=== PATIENT | female | born 1975 | race Caucasian/White ===

== ENCOUNTER 2017-07-20 11:15 | Outpatient (CLI) | payer MEDICAID, OTHER ==
[~2017-07-20] VITALS: Ht 157.5 cm; Wt 86.0 kg
[2017-07-20 11:50] VITALS: BP 99/63; PULSE 84; Ht 157.5 cm; Wt 86.0 kg
--- NOTE | 2017-07-20 13:24 | RADRPT ---
PROCEDURE: OB ultrasound for biophysical profile CLINICAL INDICATION: Gestational diabetes mellitus. TECHNIQUE: Multiple sonographic images of the pelvis were obtained. Transabdominal view of the gr avid uterus are available for review. The images were reviewed on a PACS workstation. COMPARISON: None FINDINGS: breathing movement = 2/2 tone = 2/2 motion = 2/2 Quantitative amniotic fluid volume = 2/2 EMI = 10.0 cm Single live intrauterine with cardiac activity at 137 beats per minute. There is a posterior placenta without previa. IMPRESSION: 1. Single living intrauterine gestation in cephalic position. 2. Biophysical profile = 06/30. 3. EMI = 10.0 cm. RPTAT: [facility] Physician Heraclio Date Time Electronically viewed and signed by Physician Heraclio on 07/20/2017 13:24 /
--- NOTE | 2017-07-20 17:11 | QN ---
Documentation Comment iup 34 weeks gdm vss exam wnl nst reactive a/p iup 34 weeks gdm- nst reactive dc hobbs JACK MOREIRA MD Jul 20, 2017 17:11
== END 2017-07-20 14:40 | disposition home or self-care (01) ==
LOC: OBT 11:15 → L-D 11:15 → OBT 14:40
PROVIDERS: ATTEND Obstetrics & Gynecology
DX: O24.419 Gestational diabetes mellitus in pregnancy, unspecified control (principal); Z3A.34 34 weeks gestation of pregnancy
CPT/HCPCS: 76818; Z7500; G0463

== ENCOUNTER 2017-08-24 07:19 | Inpatient (IN) | END 2017-08-28 16:41 | disposition home or self-care (01) | DRG 775 | DX: O24.429 Gestational diabetes mellitus in childbirth, unspecified control (principal); Z37.0 Single live birth; Z3A.39 39 weeks gestation of pregnancy ==

== ENCOUNTER 2018-02-15 08:46 | Day surgery (SDC) | END 2018-02-15 10:32 | disposition home or self-care (01) ==

== ENCOUNTER 2019-02-21 11:44 | Emergency (ER) | payer OTHER ==
[~2019-02-21] VITALS: Ht 154.9 cm; Wt 76.6 kg
[2019-02-21 11:52] VITALS: BP 123/58; PULSE 82; RESP 18; Ht 154.9 cm; Wt 76.6 kg
[2019-02-21] MEDS ORDERED: ONDA4TAB14 PO (15:44)
[2019-02-21] MEDS ORDERED: IBUP-1542 PO (15:44)
--- NOTE | 2019-02-21 15:56 | ERD ---
ER Documentation Chief Complaint Chief Complaint headache with nausea/dizziness since yesterday HPI 43-year-old female presents for headache, nausea and dizziness times 2 days. She states that she has a pulsatile headache rated 6 out of 10. She states however that the headache currently is improving. She also has a sore throat f or more than a month. She states that she gets nauseous with a headache. Also complains of low energy. Denies fevers or chills. She does have a history of anemia with heavy vaginal bleeding. Has never seen CHILD DAY CARE TEACHER for this issue. ROS All systems reviewed and are negative except as per history of present illness. Medications Home Meds Active Scripts Ondansetron (Ondansetron Odt) 4 Mg Tab.rapdis, 4 MG PO Q6H PRN for NAUSEA AND/OR VOMITING, #15 TAB Prov:EDWARD LAGUNAS DO 02/21/19 Ibuprofen* (Motrin*) 600 Mg Tab, 600 MG PO Q6H PRN for PAIN, #30 TAB Prov:EDWARD LAGUNAS DO 02/21/19 Allergies Allergies: Coded Allergies: caffeine (Verified Allergy, Unknown, 02/15/18) N/V PMhx/Soc History of Surgery: No Anesthesia Reaction: No Hx Neurological Disorder: No Hx Respiratory Disorders: No Hx Cardiac Disorders: No Hx Psychiatric Problems: No Hx Miscellaneous Medical Probl: No Hx Alcohol Use: No Hx Substance Use: No Hx Tobacco Use: No Physical Exam Vitals Vital Signs Date Temp Pulse Resp B/P (MAP) Pulse Ox O2 O2 Flow FiO2 Time Delivery Rate 02/21/19 98.1 82 18 123/58 98 11:52 (79) Physical Exam Const: No acute distress Head: Atraumatic, no temporal area tenderness to palpation Eyes: Normal Conjunctiva, pupils equal, round, reactive to light bilaterally ENT: Normal External Ears, bilateral tympanic membrane intact without erythema or bulging noted, Nose and Mouth examination normal. No tonsillar swelling or exudate noted Neck: Full range of motion. No meningismus, no bruits noted Resp: Clear to auscultation bilaterally Cardio: Regular rate and rhythm, no murmurs, bilateral radial and dorsalis pedis pulses intact Skin: No petechiae or rashes Ext: No cyanosis, or edema, 5 out of 5 muscular bilateral upper and lower extremities Neur: Awake and alert, bilateral upper and lower extremity sensation intact Psych: Normal Mood and Affect Result Diagram: 02/21/19 1249 02/21/19 1249 Results 24 hrs Laboratory Tests Test 02/21/19 12:49 02/21/19 12:50 02/21/19 13:12 White Blood Count 7.7 10^3/ul Red Blood Count 4.71 10^6/ul Hemoglobin 12.5 g/dl Hematocrit 39.2 % Mean Corpuscular Volume 83.2 fl Mean Corpuscular Hemoglobin 26.5 pg Mean Corpuscular 31.9 g/dl Hemoglobin Concent Red Cell Distribution Width 13.2 % Platelet Count 279 10^3/UL Mean Platelet Volume 11.2 fl Immature Granulocytes % 0.500 % Neutrophils % 81.6 % Lymphocytes % 12.5 % Monocytes % 4.1 % Eosinophils % 0.9 % Basophils % 0.4 % Nucleated Red Blood Cells % 0.0 /100WBC Immature Granulocytes # 0.040 10^3/ul Neutrophils # 6.3 10^3/ul Lymphocytes # 1.0 10^3/ul Monocytes # 0.3 10^3/ul Eosinophils # 0.1 10^3/ul Basophils # 0.0 10^3/ul Nucleated Red Blood Cells # 0.0 10^3/ul Sodium Level 140 mmol/L Potassium Level 4.5 mmol/L Chloride Level 104 mmol/L Carbon Dioxide Level 26 mmol/L Anion Gap 10 Blood Urea Nitrogen 13 mg/dl Creatinine 0.46 mg/dl Est Glomerular Filtrat > 60 mL/min Rate mL/min Glucose Level 105 mg/dl Calcium Level 9.2 mg/dl Total Bilirubin 0.4 mg/dl Direct Bilirubin 0.00 mg/dl Indirect Bilirubin 0.4 mg/dl Aspartate Amino Transf (AST/SGOT) 18 IU/L Alanine 11 IU/L Aminotransferase (ALT/SGPT) Alkaline Phosphatase 47 IU/L Total Protein 8.2 g/dl Albumin 4.4 g/dl Globulin 3.80 g/dl Albumin/Globulin Ratio 1.15 Urine Color YELLOW Urine Clarity SLIGHTLY CLOUDY Urine pH 5.0 Urine Specific [place] 1.027 Urine Ketones NEGATIVE mg/dL Urine Nitrite NEGATIVE mg/dL Urine Bilirubin NEGATIVE mg/dL Urine Urobilinogen NEGATIVE mg/dL Urine Leukocyte Esterase NEGATIVE Suzi/ul Urine Microscopic RBC 0 /HPF Urine Microscopic WBC 1 /HPF Urine Squamous Epithelial Cells MODERATE /HPF Urine Bacteria FEW /HPF Urine Mucus FEW /HPF Urine Hemoglobin NEGATIVE mg/dL Urine Glucose NEGATIVE mg/dL Urine Total Protein NEGATIVE mg/dl POC Beta HCG, Qualitative NEGATIVE Procedures/MDM Medical Decision Making: Differential diagnosis includes but not limited to primary headache, subarachnoid hemorrhage, meningitis, temporal arteritis, glaucoma, hypertension, cerebral ischemia, carotid or vertebral arterial dissection, brain tumor. Patient appeared well on physical examination, nontoxic appearing. No history of fever. There is low suspicion for meningitis. Given no temporal area tenderness to palpation, low suspicion for temporal arteritis. Patient has no vision changes and pupils are reactive bilaterally, low suspicion for glaucoma. There is also no focal neurologic deficits to suggest a brain tumor. Patient has normal sensation and muscle strength, low suspicion for cerebral ischemia. Given headache is similar to prior headaches, patient possibly has a primary headache. CBC: no e/o of systemic infection or severe anemia CMP: no e/o severe acidosis, alkalosis, renal failure, diabetic ketoacidosis, liver disease Urine: no e/o acute infection or hematuria Pelvic ultrasound unremarkable, there is no mass or free fluid. There is no anemia noted. However patient is advised to follow with [facility] CARE TE[facility]ER given donald-vaginal bleeding history. Patient given prescription for supportive medication(s). Patient advised to follow up with PCP in 1-2 days. Patient advised to return to ED for new or worsening symptoms. Patient stable on discharge from the ED. Disclaimer: Inadvertent spelling and grammatical errors are likely due to EHR/dictation software use and do not reflect on the overall quality of patient care. Also, please note that the electronic time recorded on this note does not necessarily reflect the actual time of the patient encounter. Departure Diagnosis: Primary Impression: Headache Headache type: unspecified Headache chronicity pattern: unspecified pattern Intractability: not intractable Qualified Codes: R51 - Headache Additional Impression: Nausea Condition: Fair Patient Instructions: Self-Care for Headaches, Nausea Referrals: COMM[facility]ITY CLIN[facility] YOU HAVE RECEIVED A MEDICAL SCREENING EXAM AND THE RESULTS INDICATE THAT YOU DO NOT HAVE A CONDITION THAT REQUIRES URGENT TREATMENT IN THE EMERGENCY DEPARTMENT. FURTHER EVALUATION AND TREATMENT OF YOUR CONDITION CAN WAIT UNTIL YOU ARE SEEN IN YOUR DOCTORS OFFICE WITHIN THE NEXT 1-2 DAYS. IT IS YOUR RESPONSIBILITY TO MAKE AN APPOINTMENT FOR FOLOW-UP CARE. IF YOU HAVE A PRIMARY DOCTOR --you should call your primary doctor and schedule an appointment IF YOU DO NOT HAVE A PRIMARY DOCTOR YOU CAN CALL OUR PHYSICIAN REFERRAL HOTLINE AT IF YOU CAN NOT AFFORD TO SEE A PHYSICIAN YOU CAN CHOSE FROM THE FOLLOWING [facility] CL[facility] [address] [facility] [address] [facility] [address] [facility] [address] [facility] [address] [facility] [facility]. [address] Additional Instructions: Call your primary care doctor TOMORROW for an appointment during the next 1-2 days.See the doctor sooner or return here if your condition worsens before your appointment time. Llame al doctor MAANA y eva zach THADDEUS PARA DENTRO DE 1-2 PEÑA.Dgale a la secretaria que nosotros le instruimos hacer esta thaddeus.Avise o llame si arias condicin se empeora antes de la thaddeus. Regresa aqui si peor o no mejor. EDWARD LAGUNAS DO Feb 21, 2019 15:56
== END 2019-02-21 15:40 | disposition home or self-care (01) ==
LOC: FTE 11:44
DX: R51 Headache (principal); R11.0 Nausea
CPT/HCPCS: 76856; 80053; 81001; 81025; 85025; Z7502; 81003

== ENCOUNTER 2019-05-09 10:16 | Day surgery (SDC) | payer OTHER ==
[2019-05-06 17:30] VITALS: BMI 31.8
[2019-05-09] VITALS (16 sets, daily range): BP systolic 106–139; BP diastolic 60–80; PULSE 62–82; RESP 14–17; Ht 154.9 cm; Wt 77.6 kg
[~2019-05-09] VITALS: Ht 154.9 cm; Wt 77.6 kg
--- NOTE | 2019-05-09 08:53 | PREOPHP ---
DATE OF ADMISSION: 05/09/2019 HISTORY OF PRESENT ILLNESS: Ms. Samira Bullock is a 44-year-old 6, para 4, desires permanen t surgical sterilization. PAST MEDICAL HISTORY: None. MEDICATIONS: None. PAST SURGICAL HISTORY: None. OBSTETRIC HISTORY: x4 vaginal deliveries, x2 missed AB. Last vaginal delivery was in 08/2017. GYNECOLOGIC HISTORY: 14, regular, 3 to 6 days. Denies any sexually transmitted infections. Sexuall y active with 1 partner. SOCIAL HISTORY: Denies any smoking, drugs or alcohol. FAMILY HISTORY: None. REVIEW OF SYSTEMS: All within normal except history of present illness. PHYSICAL EXAMINATION: HEENT: Within normal. LUNGS: CTA bilateral. CARDIOVASCULAR: S1, S2, regular rhythm. ABDOMEN: Soft, nontender, negative distention. EXTREMITIES: Negative edema. Gravid. VAGINAL: Normal external genitalia. Cervix negative CMT, negative lesions. Negative mass, nontender bilateral. Fundus within normal limits. ASSESSMENT: Multiparity, desires permanent surgical sterilization. PLAN: Consent for laparoscopic bilateral tubal sterilization. Risks, benefits and alternatives expl ained. All questions were answered. Dictated By: EDWARD CHAVEZ/KALIA Conf#: [id number] DID#: [id number]
[~2019-05-09 10:16] MED LIST: IBUP-1542 PO; ONDA4TAB14 PO
--- NOTE | 2019-05-09 13:51 | PREAC ---
Date/Time of Note Date/Time of Note DATE: 05/09/19 TIME: 13:51 Anesthesia Eval and Record Evaluation Time Pre-Procedure Interview DATE: 05/09/19 TIME: 13:51 Age 44 Sex female NPO: 8 hrs Preoperative diagnosis Voluntary sterilization Planned procedure Laparoscopic tubal ligation Past Medical History Past Medical History: Includes GI: Obesity Surgery & Anesthesia Issues No known issue Meds Anticoagulation: No Beta Lisette within 24 hr: No Reason Beta Lisette not given: Pt. not on B-Lisette Discontinued Scripts Ondansetron (Ondansetron Odt) 4 Mg Tab.rapdis, 4 MG PO Q6H PRN for NAUSEA AND/OR VOMITING, #15 TAB Prov:EDWARD LAGUNAS DO 02/21/19 Ibuprofen* (Motrin*) 600 Mg Tab, 600 MG PO Q6H PRN for PAIN, #30 TAB Prov:EDWARD LAGUNAS 02/21/19 Meds reviewed: Yes Allergies Coded Allergies: caffeine (Verified Allergy, Unknown, 05/09/19) N/V Allergies Reviewed: Yes Labs/Studies Labs Reviewed: Reviewed by anesthesiologist Result Diagram: 05/09/19 1143 Laboratory Tests 05/09/19 11:43 Blood Bank Test 05/09/19 11:43 Antibody Screen NEGATIVE Blood Type A POSITIVE test: Negative Pre-procedure Exam Last vitals Vital Signs Date Temp Pulse Resp B/P (MAP) Pulse Ox O2 O2 Flow FiO2 Time Delivery Rate 05/09/19 98.7 82 16 121/75 99 12:06 (90) Airway: Adequate mouth opening Mallampati: Mallampati II Teeth: Normal Lung: Normal Heart: Normal ASA Physical Status ASA physical status: 2 Emergency: None Planned Anesthetic General/MAC: ETT Planned Pain Management Parenteral pain med Pre-operative Attestations Prior to commencing anesthesia and surgery, the patient was re-evaluated, there was verification of: *The patient's identity *The results of appropriate recent lab work and preoperative vital signs *The above evaluation not changing prior to induction *Anesthetic plan, risk benefits, alternative and complications discussed with patient/family; questions answered; patient/family understands, accepts and wishes to proceed. BARBARA CUBA MD May 09, 2019 13:51
[2019-05-09] MEDS ORDERED: GLYCOPYRROLATE 0.4 MG INJ ONE ×2 (13:57→14:27)
[2019-05-09] MEDS ORDERED: PROPOFOL 20 ML ONE (13:57)
[2019-05-09] MEDS ORDERED: NEOSTIGMINE 3 MG/3 ML SYRINGE ONE ×2 (13:57→14:27)
[2019-05-09] MEDS ORDERED: ROCURONIUM 50 MG INJ ONE (13:57)
[2019-05-09] MEDS ORDERED: SUCCINYLCHOLINE CHLORIDE 100 MG/5 ML SYG IV ONE (13:57)
[2019-05-09] MEDS ORDERED: LIDOCAINE 2% (SDV) 5 ML INJ ONE (13:57)
[2019-05-09] MEDS ORDERED: MEPERIDINE 100 MG INJ ONE (13:58)
[2019-05-09] MEDS ORDERED: CEFAZOLIN 1 GM INJ ONE (13:59)
[2019-05-09] MEDS ORDERED: METOCLOPRAMIDE 10 MG INJ ONE (14:18)
[2019-05-09] MEDS ORDERED: ONDANSETRON 4 MG INJ ONE (14:18)
--- NOTE | 2019-05-09 14:55 | OPPN ---
Date/Time of Note Date/Time of Note DATE: 05/09/19 TIME: 14:53 Operative Report Planned Procedure Procedure date May 09, 2019 Procedure(s) laparoscopic bilateral tubal fulguration Performed by see signature line Job Service Consultant: EDWARD YOUSIF MD 2nd Job Service Consultant none Pre-procedure diagnosis Multiparity, desires permanent surgical sterilization. [id number] Anesthesia Type: Ixaqw1h general Post-Procedure Post-procedure diagnosis same Findings normal uterus tubes and ovaries Estimated Blood Loss: minimal Specimen(s) none Grafts/Implant(s) none Complication(s) none EDWARD YOUSIF MD May 09, 2019 14:55
--- NOTE | 2019-05-09 15:17 | PD.PPDC ---
CATERER'S AIDE Discharge Instruction Condition Otoct6Ie Patient Condition: Wzlad4r Good Diet Srfay3Yk Diet: Fembm9o Resume Regular Diet Activity/Restrictions Bnnvj4Ln Activity: Hgaxq9i Normal Activity May Shower Ewwig4Wn Restrictions: Cdlla6x No Exercising No Lifting No Driving No Sexual Activity Nothing in the Vagina No Sleepy Eye No Tampons, douche Follow-up Follow-up with Physician: 2, Week/Weeks Return to clinic for Avupr2Ip MULTIPLE W[employer]ER Instructions: Dbbsj3j Fever greater than 101 Chills Worsening abdominal pain Excessive Vaginal Bleeding More than 2 pads per hour Unable to tolerate diet Asnsu6Fj OB Instructions: Suptn4p Breast Tenderness Depression Blurried Vision Headache Rmrox8Bo Surgical Instructions: Zvzfq6e Incisional Drainage Incisional Redness EDWARD YOUSIF MD May 09, 2019 15:17
--- NOTE | 2019-05-09 15:19 | PAC ---
Date/Time of Note Date/Time of Note DATE: 05/09/19 TIME: 15:19 Post-Anesthesia Notes Post-Anesthesia Note Last documented vital signs Vital Signs Date Temp Pulse Resp B/P (MAP) Pulse Ox O2 O2 Flow FiO2 Time Delivery Rate 05/09/19 66 15 121/74 100 Mask 6.0 15:15 (90) 05/09/19 98.2 15:01 Activity: WNL Respiratory function: WNL Cardiovascular function: WNL Mental status: Baseline Pain reasonably controlled: Yes Hydration appropriate: Yes Nausea/Vomiting absent: Yes Comments BT: 98.3 BARBARA CBUA MD May 09, 2019 15:19
[2019-05-09] MEDS ORDERED: FENTAnyl 50 MCG/ML VIAL IV PRN ×3 (15:30)
[2019-05-09] MEDS ORDERED: MIDAZOLAM 1 MG/ML 2 ML INJ IV PRN (15:30)
[2019-05-09] MEDS ORDERED: hydrALAzine 20 MG INJ IV PRN (15:30)
[2019-05-09] MEDS ORDERED: HYDROmorphONE 1 MG/5 ML IV SYRINGE IV PRN ×3 (15:30)
[2019-05-09] MEDS ORDERED: METOCLOPRAMIDE 10 MG INJ IV PRN (15:30)
[2019-05-09] MEDS ORDERED: OXYCODONE/ACETAMINOPHEN (5/325) TAB PO PRN ×2 (15:30)
[2019-05-09] MEDS ORDERED: LABETALOL HCL 20MG INJ IV PRN (15:30)
[2019-05-09] MEDS ORDERED: DIPHENHYDRAMINE 50 MG INJ IV PRN (15:30)
[2019-05-09] MEDS ORDERED: EPHEDrine 25 MG/5 ML SYG IV PRN (15:30)
[2019-05-09] MEDS ORDERED: MEPERIDINE 25 MG INJ IV PRN (15:30)
[2019-05-09] MEDS ORDERED: ONDANSETRON 4 MG INJ IV PRN (15:30)
--- NOTE | 2019-05-11 17:17 | OPR ---
DATE OF OPERATION: 05/09/2019 PRIMARY DIAGNOSES: Multiparity, desires permanent surgical sterilization. POSTOPERATIVE DIAGNOSES: Multiparity, desires permanent surgical sterilization. PROCEDURE: Laparoscopic bilateral tubal fulguration. SURGEON: Mike Woods MD ENGINEERING INSTRUCTOR: None. ANESTHESIA: General. COMPLICATIONS: None. ESTIMATED BLOOD LOSS: Minimal. FINDINGS: Normal uterus, tubes, and ovaries. DESCRIPTION OF PROCEDURE: After explaining the risks, benefits, and alternatives, the patient had co nsent signed in chart. The patient was taken to the operating room where general anesthesia was obta ined without difficulty. The patient was then examined under anesthesia and found to have a small an teverted uterus with normal adnexa. She was then placed in dorsal lithotomy position and prepared an d draped in a sterile fashion. A heavy weighted speculum was then placed in the patient's vagina and the anterior lip of the cervix was grasped with a single tooth tenaculum. A HUMI uterine manipulato r was then advanced into the uterus to provide means to manipulate the uterus. The speculum was then removed from the vagina. Attention was then turned to the patient's abdomen where a 5 mm skin incis ion was made in the umbilical fold. The Veress needle was carefully introduced into the peritoneal c avity at 45-degree angle while tenting the abdominal wall. Intraperitoneal placement was confirmed b y use of water-filled syringe and drop in intraabdominal pressure with insufflation of CO2 gas. The trocar and sleeve were then advanced without difficulty into the abdomen where intra-abdominal placem ent was confirmed by laparoscope. Pneumoperitoneum was obtained with 4 L of CO2 gas, and a 5 mm troc ar and sleeve were then advanced under direct visualization of the bladder where intra-abdominal plac ement was confirmed by laparoscope. A second skin incision was made 2 cm above the symphysis pubis i n the midline. The second trocar and sleeve were then advanced under direct visualization. A survey of the patient's pelvis and abdomen revealed normal. At this point, the right fallopian tube was fu lgurated at multiple areas of the ampullary and isthmus area. Good blanching was observed. Similarl y, the left fallopian tube was fulgurated. Good hemostasis was noted. The instruments were then rem juancho from the patient's abdomen, and the incision was repaired with 3-0 Vicryl. The needle was then removed from the patient's vagina with no bleeding noted from the cervix. The patient tolerated proc edure well. Sponge, lap, needle counts were correct. The patient was taken to recovery room in stab le condition. Dictated By: MIKE CHAVEZ/KALIA Conf#: [id number] DID#: [id number]
== END 2019-05-09 18:25 | disposition home or self-care (01) ==
LOC: SDS 10:16
PROVIDERS: ATTEND Obstetrics & Gynecology
DX: Z30.2 Encounter for sterilization (principal)
CPT/HCPCS: 58670; 84702; 85025; 86850; 86900; 86901; J0690; J2175; J2405; J2710; J2765; J3010